=== PATIENT | male | born 1995 | race African-American/Black ===

== ENCOUNTER 2022-03-26 16:43 | Emergency (ER) | payer OTHER ==
[~2022-03-26] VITALS: Ht 172.7 cm; Wt 90.7 kg
[2022-03-26] MEDS ORDERED: MELATONIN1 MG PO (18:40)
[2022-03-26] MEDS ORDERED: VISTARIL50 MG PO (18:41)
== END 2022-03-26 20:35 | disposition home or self-care (01) ==
LOC: ED 16:43
DX: S00.12XA Contusion of left eyelid and periocular area, initial encounter (principal); H43.392 Other vitreous opacities, left eye; Y04.8XXA Assault by other bodily force, initial encounter; Z79.899 Other long term (current) drug therapy
CPT/HCPCS: 70450; 70486; 72125; 99284-25

== ENCOUNTER 2022-09-17 15:40 | Emergency (ER) | payer OTHER ==
[~2022-09-17] VITALS: Ht 172.7 cm; Wt 88.5 kg
[~2022-09-17 15:40] MED LIST: MELATONIN1 MG PO; VISTARIL50 MG PO
[2022-09-17] MEDS ORDERED: HYDROXYZINE HCL50 MG PO (15:52)
[2022-09-17] MEDS ORDERED: PAXIL20 MG PO (15:53)
[2022-09-17] MEDS ORDERED: ATIVAN1 MG PO (17:10)
== END 2022-09-17 17:36 | disposition home or self-care (01) ==
LOC: ED 15:40
DX: R56.9 Unspecified convulsions (principal); F41.9 Anxiety disorder, unspecified; Z79.899 Other long term (current) drug therapy
CPT/HCPCS: 36415; 80053; 81003; 85025; 99284; A9270; J7030

== ENCOUNTER 2024-02-05 14:41 | Emergency (ER) | payer OTHER ==
[~2024-02-05] VITALS: Ht 177.8 cm; Wt 93.2 kg
[~2024-02-05 14:41] MED LIST changes: +ATIVAN1 MG PO; +HYDROXYZINE HCL50 MG PO; +KEPPRA1000 MG PO; +KEPPRA250 MG PO; +PAXIL20 MG PO; +PROZAC10 MG PO
[2024-02-05] MEDS ORDERED: PRAZOSIN HCL1 MG PO (15:08)
[2024-02-05] MEDS ORDERED: VITAMIN B-12100 MCG PO (15:10)
[2024-02-05] MEDS ORDERED: ONDANSETRON ODT8 MG PO (15:10)
[2024-02-05] MEDS ORDERED: VITAMIN D350 MC3 PO (15:10)
[2024-02-05] MEDS ORDERED: ZYPREXA2.5 MG PO (15:11)
[2024-02-05 15:12] LABS: HEMOGLOBIN 14.3 g/dL (12.0-18.0)
[2024-02-05 15:15] LABS: BASOPHILS 0.5 % (0-2); EOSINOPHILS 1.4 % (0-6); HEMATOCRIT 43.6 % (35.0-50.0); LYMPHOCYTES 46.7 % (24-44); MCH 27.8 (27-36); MCHC 32.9 g/dl (30-36); MCV 84.7 fl (81-99); MONOCYTES 13.2 % (0-12); NEUTROPHILS 38.2 % (39-80); PLATELET COUNT 161 K/uL (140-440); RBC 5.15 M/ul (4.3-5.7); RDW 13.5 (10.5-15.0)
[2024-02-05] MEDS ORDERED: levETIRAcetam 500 MG/5 ML VIAL IV ONE (15:15)
[2024-02-05 15:21] LABS: CALCIUM 9.4 mg/dL (8.5-10.1); POTASSIUM 4.4 mmol/L (3.5-5.1)
[2024-02-05 15:31] LABS: ALBUMIN 3.9 g/dL (3.4-5.0); ALBUMIN/GLOBULIN RATIO 1.15 (1.1-2.4); ANION GAP 13.4 (7-21); BILIRUBIN, TOTAL 1.3 ng/dL (0.2-1.0); BUN/CREATININE RATIO 8.69 (6.0-28.6); CREATININE, SERUM 1.38 mg/dL (0.70-1.30); PROTEIN, TOTAL 7.3 g/dL (6.4-8.2)
[2024-02-05 16:13] LABS: BILIRUBIN, URINE NEGATIVE (negative); BLOOD/HGB, URINE NEGATIVE (Negative); KETONE, URINE TRACE (Negative); LEUK ESTERASE, URINE TRACE (negative); NITRITE, URINE NEGATIVE (negative); PH, URINE 6.5 (5-7)
[2024-02-05 16:20] VITALS: BP 109/58
[2024-02-05 16:23] LABS: RED BLOOD CELLS, URINE 0-1 /hpf (0-5)
[2024-02-05 16:24] LABS: BACTERIA, URINE RARE /hpf (negative); CASTS, URINE NONE SEEN \\lpf; COLLECTION TYPE, URINE CLEAN CATCH; CRYSTALS, URINE NONE SEEN (0-1+); EPITHELIAL CELLS, URINE SQUAMOUS 1+ /lpf (0-1+); REFLEX CULTURE, URINE Yes (No)
--- NOTE | 2024-02-06 19:44 | EKG ---
[facility] [address] [facility] [place] [address] Signed Sinus bradycardia with marked sinus arrhythmia Otherwise normal ECG No previous ECGs available Confirmed by Quincy Weiss MD ([id number]) on 02/06/2024 7:44:20 PM Electronically Signed By: QUINCY WEISS MD 02/06/241943 PATIENT NAME: RUDOLPHTONY TAPAN Electrocardiogram DATE OF : [birth year] PHYSICIAN: QUINCY WEISS MD REPORT #: [id number] REPORT IS CONFIDENTIAL AND NOT TO BE RELEASED WITHOUT AUTHORIZATION
== END 2024-02-05 16:20 | disposition home or self-care (01) ==
LOC: ED 14:41
PROVIDERS: Emergency Medicine
DX: R56.9 Unspecified convulsions (principal); F43.10 Post-traumatic stress disorder, unspecified; Z79.899 Other long term (current) drug therapy
CPT/HCPCS: 36415; 80053; 81001; 85025; 87088; 93005; 93010; 96374; 99284-25; J1953

== ENCOUNTER 2024-07-07 23:56 | Emergency (ER) | payer OTHER ==
[~2024-07-07] VITALS: Ht 177.8 cm; Wt 100.7 kg
[~2024-07-07 23:56] MED LIST changes: +ONDANSETRON ODT8 MG PO; +PRAZOSIN HCL1 MG PO; +VITAMIN B-12100 MCG PO; +VITAMIN D350 MC3 PO; +ZYPREXA2.5 MG PO
[2024-07-08 00:12] LABS: BASOPHILS 0.7 % (0-2); EOSINOPHILS 0.6 % (0-6); HEMATOCRIT 41.7 % (35.0-50.0); LYMPHOCYTES 27.1 % (24-44); MCH 28.8 (27-36); MCHC 33.7 g/dl (30-36); MCV 85.4 fl (81-99); MONOCYTES 11.5 % (0-12); NEUTROPHILS 60.1 % (39-80); PLATELET COUNT 177 K/uL (140-440); RBC 4.88 M/ul (4.3-5.7); RDW 13.1 (10.5-15.0)
[2024-07-08] MEDS ORDERED: levETIRAcetam 500 MG/5 ML VIAL IV ONE (00:15)
[2024-07-08 00:28] LABS: VALPROIC ACID 77 ug/mL (50-100)
[2024-07-08 00:29] LABS: ALBUMIN 3.4 g/dL (3.4-5.0); ANION GAP 9.1 (7-21); BILIRUBIN, TOTAL 0.4 ng/dL (0.2-1.0); BUN/CREATININE RATIO 13.69 (6.0-28.6); CALCIUM 9.6 mg/dL (8.5-10.1); CREATININE, SERUM 1.46 mg/dL (0.70-1.30); MAGNESIUM 1.5 mg/dL (1.8-2.4); POTASSIUM 4.1 mmol/L (3.5-5.1); PROTEIN, TOTAL 6.8 g/dL (6.4-8.2)
[2024-07-08] MEDS ORDERED: MAGNESIUM SULFATE 2 GM/50 ML BAG IV ONE (01:00)
[2024-07-08] MEDS ORDERED: SODIUM CHLORIDE 0.9% 500 ML IV PRN (01:00)
[2024-07-08 02:15] VITALS: BP 128/53
[2024-07-09 11:20] LABS: KEPPRA (LEVETIRACETAM) 32 ug/mL (10-40)
[2024-07-09 12:29] LABS: PROLACTIN 8.3 ng/mL (2.1-17.7)
== END 2024-07-08 02:15 | disposition home or self-care (01) ==
LOC: ED 23:56
PROVIDERS: Family Medicine
DX: G40.89 Other seizures (principal); Z79.899 Other long term (current) drug therapy
CPT/HCPCS: 36415; 80053; 80164; 80177; 83735; 84146; 85025; 96365; 96375; 99284-25; J1953; J3475; J7040

== ENCOUNTER 2025-02-10 11:47 | Emergency (ER) | payer OTHER ==
[~2025-02-10] VITALS: Ht 177.8 cm; Wt 97.9 kg
[2025-02-10 12:09] LABS: BASOPHILS 0.6 % (0.2-1.2); EOSINOPHILS 2.0 % (0.8-7.0); LYMPHOCYTES 39.5 % (21.8-53.1); MCH 28.4 PG (25.7-32.2); MCHC 33.5 g/dL (32.3-36.5); MCV 84.9 fL (79.0-92.2); MONOCYTES 15.3 % (5.3-12.2); NEUTROPHILS 42.3 % (34.0-67.9); RBC 5.03 M/uL (4.63-6.08)
[2025-02-10 12:19] LABS: GLOMERULAR FILTRATION RATE,EST 95.0 mL/min (>60); UREA NITROGEN 12.0 mg/dL (7-18)
[2025-02-10] MEDS ORDERED: DEPAKOTE ER500 MG PO (12:22)
[2025-02-10 13:35] VITALS: BP 135/73
== END 2025-02-10 13:35 | disposition home or self-care (01) ==
LOC: ED 11:47
PROVIDERS: Emergency Medicine
DX: R56.9 Unspecified convulsions (principal); Z79.899 Other long term (current) drug therapy
CPT/HCPCS: 36415; 80048; 85025; 96374; 96375; 99284-25; J1953; J2405

== ENCOUNTER 2025-03-04 07:10 | Emergency (ER) | payer OTHER ==
[~2025-03-04 07:10] MED LIST changes: +DEPAKOTE ER500 MG PO
--- OUTSIDE RECORDS SUMMARY | 2025-03-04 07:17 | XMS ---
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 Abdullahi has no Care Guidelines for this patient. Nen[facility] MO.) [facility] NOTE: Visits indicate total known visits. ED/C VISIT TRACKING (12 MO.) [facility] 07[facility] COMPLAINT: - SEIZURE 02/10/2025 11:48 [facility] [place] TYPE: Emergency COMPLAINT: - SEIZURE DIAGNOSES: - Other alf (current) drug therapy - Unspecified convulsions 07/07/2024 23:57 [facility] [place] TYPE: Emergency COMPLAINT: - SEIZURE DIAGNOSES: - Other intermediate school teacher (current) drug therapy - Other seizures - Unspecified convulsions INPATIENT VISIT TRACKING (12 MO.) No inpatient visits to display in this time frame [id number]
[2025-03-04 07:40] LABS: BASOPHILS 0.6 % (0.2-1.2); EOSINOPHILS 1.0 % (0.8-7.0); LYMPHOCYTES 45.0 % (21.8-53.1); MCH 28.7 PG (25.7-32.2); MCHC 33.1 g/dL (32.3-36.5); MCV 86.6 fL (79.0-92.2); MONOCYTES 14.3 % (5.3-12.2); NEUTROPHILS 38.7 % (34.0-67.9); RBC 5.44 M/uL (4.63-6.08)
[2025-03-04] MEDS ORDERED: SODIUM CHLORIDE 0.9% 1,000 ML IV ONE (07:45)
[2025-03-04] MEDS ORDERED: MIDAZOLAM HCL 2 MG/2 ML VIAL IV SCH (07:45)
[2025-03-04 08:09] LABS: ALT (SGPT) 28 U/L (14-59); AST (SGOT) 14 U/L (15-37); GLOMERULAR FILTRATION RATE,EST 88 mL/min (>60); PROTEIN, TOTAL 7.0 g/dL (6.4-8.2); UREA NITROGEN 18 mg/dL (7-18)
[2025-03-04 08:10] LABS: VALPROIC ACID 95 ug/mL (50-100)
[2025-03-04 08:18] LABS: ALCOHOL, MEDICAL <3 ng/dL (<3)
[2025-03-04 11:51] VITALS: BP 117/58
[2025-03-06 00:20] LABS: KEPPRA (LEVETIRACETAM) 18.4 ug/mL (10.0-40.0)
== END 2025-03-04 11:55 | disposition home or self-care (01) ==
LOC: ED 07:10
PROVIDERS: Emergency Medicine
DX: R56.9 Unspecified convulsions (principal); Z79.899 Other long term (current) drug therapy
CPT/HCPCS: 36415; 70450; 71045; 80053; 80164; 80177; 80307; 85025; 96374; 96376; 99284-25; G0480; J2250; J7030

== ENCOUNTER 2025-03-30 17:25 | Emergency (ER) | payer OTHER ==
[~2025-03-30] VITALS: Ht 177.8 cm; Wt 95.0 kg
--- OUTSIDE RECORDS SUMMARY | 2025-03-30 17:32 | XMS ---
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 Abdullahi has no Care Guidelines for this patient. Nenita VISIT COUNT (12 MO.) 4 [facility] TOTAL 4 NOTE: Visits indicate total known visits. ED/C VISIT TRACKING (12 MO.) [facility] COMPLAINT: - SEIZURE, HIT HEAD 03/04/2025 07:11 [facility] [place] TYPE: Emergency COMPLAINT: - SEIZURE DIAGNOSES: - Other fci (current) drug therapy - Unspecified convulsions 02/10/2025 11:48 [facility] [place] TYPE: Emergency COMPLAINT: - SEIZURE DIAGNOSES: - Other fci (current) drug therapy - Unspecified convulsions 07/07/2024 23:57 [facility] [place] TYPE: Emergency COMPLAINT: - SEIZURE DIAGNOSES: - Other fci (current) drug therapy - Other seizures - Unspecified convulsions INPATIENT VISIT TRACKING (12 MO.) No inpatient visits to display in this time frame [email or web address]
[2025-03-30 19:10] VITALS: BP 124/62
== END 2025-03-30 19:14 | disposition other institution, planned readmission (95) ==
LOC: ED 17:25
DX: R56.9 Unspecified convulsions (principal); Z79.899 Other long term (current) drug therapy
CPT/HCPCS: 80053; 85025; 99284